=== PATIENT | female | born 1965 | race Caucasian/White ===

== ENCOUNTER 2016-11-19 08:28 | Day surgery (SDC) | payer BC ==
[2016-11-19] MEDS ORDERED: Lactated Ringers 1,000 ML IV SCH (09:00)
[2016-11-19] MEDS ORDERED: ceFAZolin 2 GM in Premix Bag 1 BAG IV ONE (09:03)
--- NOTE | 2016-11-19 09:27 | PCM.PREANE ---
Preanesthetic Assessment - Anesthesia/Transfusion/Family Hx Anesthesia History: Prior Anesthesia Without Reaction Family History of Anesthesia Reaction: No Transfusion History: No Prior Transfusion(s) Intubation History: Unknown - Review of Systems General: No Symptoms Pulmonary: No Symptoms Cardiovascular: No Symptoms Gastrointestinal: No symptoms Neurological: No Symptoms Other: Reports: None - Physical Assessment Height: 1.65 m Weight: 102.058 kg ASA Class: 2 Mental Status: Alert & Oriented x3 Airway Class: Mallampati = 2 Dentition: Reports: Normal Dentition Thyro-Mental Finger Breadths: 3 Mouth Opening Finger Breadths: 3 ROM/Head Extension: Full Lungs: Clear to auscultation, Normal respiratory effort Cardiovascular: Regular Rate, Regular Rhythm - Allergies Allergies/Adverse Reactions: Allergies Allergy/AdvReac Type Severity Reaction Status Date / Time No Known Allergies Allergy Verified 10/14/15 13:06 - Blood Blood Available: No - Anesthesia Plan Pre-Op Medication Ordered: None - Acknowledgements Anesthesia Type Planned: General Anesthesia Pt an Appropriate Candidate for the Planned Anesthesia: Yes Alternatives and Risks of Anesthesia Discussed w Pt/Guardian: Yes Pt/Guardian Understands and Agrees with Anesthesia Plan: Yes PreAnesthesia Questionnaire HEENT History: Reports: Allergic Rhinitis Cardiovascular History: Reports: None Respiratory History: Reports: None Gastrointestinal History: Reports: GERD MOVERS History: Reports: Musculoskeletal History: Reports: Osteoarthritis Neurological History: Reports: Migraines Other Neuro History: insomnia Psychiatric History: Reports: Anxiety, Depression Endocrine/Metabolic History: Reports: Obesity/BMI 30+ Hematologic History: Reports: None Immunologic History: Reports: None Oncologic (Cancer) History: Reports: None Dermatologic History: Reports: None - Past Surgical History Head Surgeries/Procedures: Reports: None GI Surgical History: Reports: Colonoscopy, EGD Female Surgical History: Reports: Section, Other (See Below) Other Female Surgeries/Procedures: c/section x2, breast augmentation - SUBSTANCE USE Smoking Status *Q: Former Smoker - HOME MEDS Home Medications: Home Meds Fluticasone Propionate [Flonase Allergy Relief] 1 spray NASBOTH DAILY 10/14/15 [ History] Sertraline HCl 100 mg PO DAILY 10/14/15 [History] Melatonin 5 mg PO BEDTIME 10/16/15 [History] Verapamil [Calan SR] 1 tab PO BEDTIME 10/16/15 [History] Estrogen,Con/M-Progest Acet [Prempro 0.3 MG-1.5 MG] 1 tab PO DAILY 11/17/16 [ History] Eszopiclone [Lunesta] 3 mg PO BEDTIME 11/17/16 [History] Omeprazole 20 mg PO BID 11/17/16 [History] cloNIDine HCl [Catapres] 0.2 mg PO BEDTIME 11/17/16 [History] - CURRENT (IN HOUSE) MEDS Current Meds: Current Medications Lactated Ringer's (Ringers, Lactated) 1,000 mls @ 100 mls/hr IV ASDIRECTED [facility] Cefazolin Sodium/Dextrose 2 gm (/ Premix) 50 mls @ 100 mls/hr IV ONETIME ONE Stop: 11/19/16 09:32
[2016-11-19] MEDS ORDERED: fentaNYL 100 MCG/2 ML SDV IVPUSH PRN (10:36)
--- NOTE | 2016-11-19 11:02 | PN ---
PREOPERATIVE DIAGNOSIS: Accessory navicular with posterior tibial tendinitis, left foot. PLANNED PROCEDURE: Reconstruction of posterior tibial tendon with excision of accessory tarsal navicular bone, left foot. Consent is signed and in the chart. ANESTHESIA: General. The patient confirms n.p.o. since midnight. HISTORY AND PHYSICAL: Completed by Dr. Tracey. No contraindications to surgery. ALLERGIES: No known allergies. CURRENT MEDICATIONS: Omeprazole 20 mg daily as needed. Clonidine 0.2 mg at bedtime. Verapamil 240 mg daily for migraine prophylaxis. Sertraline 100 mg daily. Lunesta 3 mg at bedtime. Prempro 0.3/1.5 mg one tablet daily. MEDICAL HISTORY: 1. Migraine without aura. 2. Gastroesophageal reflux disease. 3. Osteoarthritis. 4. Chronic left foot pain. 5. History of major depressive disorder/anxiety disorder. 6. Chronic insomnia. PAST SURGICAL HISTORY: twice, breast implants and upper GI endoscopy and colonoscopy. LABORATORY DATA: From 11/10/2016, white blood cell 11.74, red blood cell 5.16, hemoglobin 15.1, hematocrit 44.0, platelets 305, glucose 91, calcium 9.3, BUN 18, creatinine 0.83, sodium 140, potassium 4.2, CO2 of 25.0, Chloride 103. Urinalysis is unremarkable. JOSE VALLES /[id number] MTDD
--- NOTE | 2016-11-19 13:14 | PCM.OPNOTE ---
- General Post-Op/Procedure Note Date of Surgery/Procedure: 11/19/16 Operative Procedure(s): reconstruction of posterior tibial tendon and excision of accessory tarsal navicular bone left foot Findings: consistent with diagnoses Pre Op Diagnosis: accessory navicular bone and posterior tibial tendonitis left foot Post-Op Diagnosis: accessory navicular bone and posterior tibial tendonitis left foot Anesthesia Technique: General LMA Primary Surgeon: Romaine Simeon Pathology: accessory navicular bone and resected medial portion of navicular tuberosity left foot EBL in mLs: 5 Complications: none Condition: Good Free Text/Narrative:: Intake & Output 11/18/16 11/19/16 11/19/16 22:59 06:59 14:59 Intake Total 1600 Balance 1600 injectables: 10 ml 0.5% marcaine plain materials: [employer] Sonic [place] 2.5mm x 10 mm polymer x 2 each mounted with 2-0 Fibrewire suture 3-0 vicryl suture 4-0 prolene suture
--- NOTE | 2016-11-19 13:28 | PCM48HPAN ---
Post Anesthesia Note - EVALUATION WITHIN 48HRS OF ANESTHETIC Vital Signs in Normal Range: Yes Patient Participated in Evaluation: Yes Respiratory Function Stable: Yes Airway Patent: Yes Cardiovascular Function Stable: Yes Hydration Status Stable: Yes Pain Control Satisfactory: Yes Nausea and Vomiting Control Satisfactory: Yes Mental Status Recovered: Yes
[2016-11-19 14:57] VITALS: BP 121/61
--- NOTE | 2016-11-19 23:15 | OR ---
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 PLANNED PROCEDURE: Reconstruction of posterior tibial tendon with excision of the accessory tarsal navicular bone, left foot. CONSENT: Signed and in the chart. ANESTHESIA: General. HEMOSTASIS: Above ankle pneumatic tourniquet, inflated to a pressure of 250 mmHg after an Esmarch bandage exsanguination. JUSTIFICATION FOR THE PROCEDURE: The patient first presented in my office four months ago with complaint of long- standing pain with recent worsening on the left foot over the medial aspect and upon exam I suspected an accessory navicular bone; however, the patient is a 51- year-old, and had no history of being diagnosed with an accessory navicular bone despite the fact that she stated she had complained of pain even as a child on both feet and worse on the left and had not been diagnosed with any extra bone to this day. Upon x-raying the patient, a large obvious accessory navicular bone was identified measuring between two and 2.5 cm in length. I concluded that this was the primary cause of the patient's symptoms and that over the years, her posterior tibial tendon had likely been traumatized significantly due to the obstruction posed by this bone. I explained to the patient that regardless of the bone, the state of the posterior tibial tendon was very questionable given her age and her longstanding history with this problem. Conservative treatments were tried including use of a boot and offloading the area, however, no meaningful result was obtained, certainly no satisfactory relief, and the patient elected for surgical correction. The patient understands and I have discussed with the patient pros and cons of surgery and the limitations that may be achieved and that surgery will consist of excising the accessory navicular bone and resecting the remaining navicular bone to allow for anchoring of the posterior tibial tendon which will need to be reconstructed as well as repaired by suturing the tendon itself, both to itself and into the bone. The patient understands and has agreed to surgery and the patient consent form has been signed and placed in the patient's chart. No guarantees expressed or implied. DESCRIPTION OF THE PROCEDURE: The patient was brought to the operating room, placed on the operating table in the supine position, at which time, an aseptic scrub and drape was performed about the patient's left lower extremity and administration of general anesthesia commenced. Prior to surgery, I x-rayed the patient's foot and planed the incision site with a marking pen. Following this, I exsanguinated the left lower extremity with an Esmarch bandage and the pneumatic tourniquet affixed just above the ankle, was inflated to a pressure of 250 mmHg. A curvilinear 5 cm incision was made directly over the accessory navicular bone and the tuberosity of the navicular bone. Utilizing a 15 blade, incision was carried down through the skin and subcutaneous tissue with all small bleeders bovied as necessary and all neurovascular structures and tendinous structures retracted out of the path of the incision with the exception of the posterior tibial tendon which was identified as being significantly compromised and damaged and thinned. The substance of the tendon was dissected carefully from the accessory navicular bone and the portion of the tuberosity of the navicular bone to which it was attached. Utilizing intraoperative fluoroscopy, I confirmed both through fluoroscopy and visually the location of the accessory navicular bone which was quite obvious upon dissection of the tendon and this bone was carefully dissected and removed from the foot. Measurement was taken and the bone is over 2 cm long. A [employer] saw blade was then utilized to resect the medial eminence of the tuberosity of the navicular bone on the left foot and the site was rasped smooth with a power rasp. The [employer] sonic anchor drill bit was used to prepare to drill holes approximately 6 mm part over the newly fashioned surface of the medial navicular bone and this was followed by insertion of the sonic anchor polymer x2, each one fixed with 2-0 FiberWire, both into the proximal and distal drill holes in the navicular bone. After placement of the anchors, I noted them to be firmly in place and the sutures connected to the anchors were then passed through the superior and inferior portions of the posterior tibial tendon, both at the proximal location and the more distal one, and the tendon was secured to the bone with several hand ties and the excessive suture was then cut away. I should note that prior to use of the sonic anchor drilling piece, the entire area had been copiously flushed with saline solution. I then reinspected the area after tying down the tendon to the bone and just the tendon to be affixed as well as it could be given its compromise state. During this entire time, the foot had been held in a slight inversion for the best possible outcome and the posterior tibial tendon itself was then sutured using 3 - 0 Vicryl suture to further strengthen it. Following this, the layered closure was done with continuous 3-0 Vicryl suture for the subcutaneous tissue and 4-0 Prolene suture for the superficial skin. Postoperative x-rays as well as the preoperative x-rays were taken and the postoperative x-rays did show that the accessory navicular bone was fully resected and removed. 10 mL of 0.5% Marcaine plain was infiltrated about the surgical site. The tourniquet was deflated at a time of 104 minutes. Estimated blood loss was 5 mL, and the site was covered with Betadine-soaked Xeroform gauze followed by fluff gauze, Kerlix roll, and then a stockinette was placed over the entire foot and distal half of the leg followed by multiple layers of cast padding and a fiberglass cast using a combination of 3 and 4 inch fiberglass rules was applied. The patient tolerated the procedure and the anesthesia well with no complications noted and the patient was then transferred from the operating room to the recovery room and after a short stay in recovery room was transferred to her preoperative room prior to discharge. The patient was provided with verbal and written instructions regarding strict nonweightbearing to the left lower extremity until further notice and the patient also has been instructed to make an appointment for two weeks from today to be followed up in my office. The patient and her have my cell phone number in the event that she needs to be seen or talked to sooner than then for any concerns that may arise. The patient also has [place] prescribed for adequate analgesic care. The patient has a scooter and crutches already and she was dispensed a shower bag today to keep the cast clean and dry. JOSE / REENA /[id number] [place]
--- NOTE | 2016-11-23 08:48 | CR ---
EXAMINATION: Left foot HISTORY: Surgery COMPARISON: None TECHNIQUE: 4 fluoroscopic images provided FINDINGS/IMPRESSION: Operative control films demonstrate several projections of the left midfoot wit h overlying projected instrumentation projecting near accessory navicular bone.
== END 2016-11-19 14:00 | disposition home or self-care (01) ==
LOC: MW.SDS 08:28
PROVIDERS: ATTEND Podiatrist Foot & Ankle Surgery
PROC: 0LQP0ZZ Repair Left Lower Leg Tendon, Open Approach (ICD-10-PCS; principal; 2016-11-19)
DX: M76.822 Posterior tibial tendinitis, left leg (principal); Q74.0 Other congenital malformations of upper limb(s), including shoulder girdle; G43.009 Migraine without aura, not intractable, without status migrainosus; K21.9 Gastro-esophageal reflux disease without esophagitis; M19.90 Unspecified osteoarthritis, unspecified site; F32.9 Major depressive disorder, single episode, unspecified; F41.9 Anxiety disorder, unspecified; F51.04 Psychophysiologic insomnia; E66.9 Obesity, unspecified; Z87.891 Personal history of nicotine dependence; Z98.890 Other specified postprocedural states; Z79.899 Other long term (current) drug therapy
CPT/HCPCS: 28238; 76001; J0690; J7120; 01470; 88304; 88311; C1713

== ENCOUNTER 2018-02-14 10:58 | Emergency (ER) | payer BC ==
--- NOTE | 2018-02-14 11:09 | EDM.PDOC ---
ED HPI GENERAL MEDICAL PROBLEM - General Stated Complaint: RASH ON PT'S BODY Time Seen by Provider: 02/14/18 12:24 Source of Information: Reports: Patient History Limitations: Reports: No Limitations - History of Present Illness INITIAL COMMENTS - FREE TEXT/NARRATIVE: HISTORY AND PHYSICAL: 52-year-old female presenting with a rash all over her body History of Present Illness: []Patient has had problems with some vertigo was to see a physician and had Florentin maneuver 4 days ago. Had difficulty with nausea since this procedure. The day after her Florentin maneuver she broke out in a rash all over. She has not changed any soap, solutions, creams. Review of Systems: As per history of present illness and below otherwise all systems reviewed and negative. Past medical history: As per history of present illness and as reviewed below otherwise noncontributory. Surgical history: As per history of present illness and as reviewed below otherwise noncontributory. Social history: No reported history of drug or alcohol abuse. Family history: As per history of present illness and as reviewed below otherwise noncontributory. Physical exam: Alert and oriented female answering questions appropriately in full sentences without any shortness of breath. Vital signs: Reviewed by me. Sinuses are nontender upon palpation. Skin has erythematous areas non-raised, mildly puritic, HEENT: Atraumatic, normocehpalic, pupils reactive, negative for conjunctival pallor or scleral icterus, mucous membranes moist, throat clear, neck supple, nontender, trachea midline. Hepatic membranes without erythema told Lungs: Clear to auscultation, breath sounds equal bilaterally, chest non tender. Heart: S1S2, regular, negative for clicks, rubs, or JVD. Abdomen: Soft, nondistended, nontender. Negative for masses or hepatossplenmegaly. Negative for costovertebral tenderness. Pelvis: Stable nontender. Genitourinary: Deferred. Rectal: Deferred Extremities: Atraumatic, negative for cords or calf pain. Neurovascular unremarkable. Neuro: Awake, alert, oriented. Cranial nerves II through XII unremarkable. Cerebellum unremarkable. Motor and sensory unremarkable throughout. Exam nonfocal. Diagnostics: [] Therapeutics: [] Impression: []#1 Vertigo #2 Nausea, secondary to the vertigo #3 nonspecific rash Plan: []Discharge Medication of #1 meclizine 25 mg up to 2 3 times a day when necessary for vertigo #2 Zofran for nausea ODT # 12 # medrol dose pack Follow up for re-evaluation with your PCP in 3 days Definitive disposition and diagnosis as appropriate pending reevaluation and review of above. Onset: Gradual Duration: Week(s): Location: Reports: Head, Generalized Quality: Reports: Ache Severity: Moderate Improves with: Reports: None Worsens with: Reports: None - Related Data Allergies Allergy/AdvReac Type Severity Reaction Status Date / Time No Known Allergies Allergy Verified 02/14/18 11:21 Home Meds: Home Meds Verapamil [Calan SR] 1 tab PO BEDTIME 10/16/15 [History] Eszopiclone [Lunesta] 3 mg PO BEDTIME 11/17/16 [History] Omeprazole 20 mg PO BID 11/17/16 [History] cloNIDine HCl [Catapres] 0.2 mg PO BEDTIME 11/17/16 [History] Meclizine [Antivert] 25 mg PO Q6H PRN #12 tab 02/14/18 [Rx] Ondansetron [Zofran ODT] 4 mg PO Q6H PRN #12 tab.dis 02/14/18 [Rx] methylPREDNISolone [Medrol] 4 mg PO ASDIRECTED #1 dosepk 02/14/18 [Rx] Past Medical History HEENT History: Reports: Allergic Rhinitis Cardiovascular History: Reports: None Respiratory History: Reports: None Gastrointestinal History: Reports: GERD 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: Musculoskeletal History: Reports: Osteoarthritis Neurological History: Reports: Migraines Other Neuro History: insomnia Psychiatric History: Reports: Anxiety, Depression Endocrine/Metabolic History: Reports: Obesity/BMI 30+ Hematologic History: Reports: None Immunologic History: Reports: None Oncologic (Cancer) History: Reports: None Dermatologic History: Reports: None - Past Surgical History Head Surgeries/Procedures: Reports: None GI Surgical History: Reports: Colonoscopy, EGD Female Surgical History: Reports: Section, Other (See Below) Other Female Surgeries/Procedures: c/section x2, breast augmentation ED ROS GENERAL - Review of Systems Review Of Systems: ROS reveals no pertinent complaints other than HPI. ED EXAM, SKIN/RASH Exam: See Below (see dicctation) Course - Vital Signs Last Recorded V/S: Last Vital Signs Temp 36.3 C 02/14/18 11:17 Pulse 65 02/14/18 11:17 Resp 18 02/14/18 11:17 BP 126/58 L 02/14/18 11:17 Pulse Ox 93 L 02/14/18 11:17 Departure - Departure Time of Disposition: 12:30 Disposition: Home, Self-Care 01 Condition: Good Clinical Impression: Vertigo, Rash and nonspecific skin eruption, Nausea - Discharge Information *PRESCRIPTION DRUG MONITORING PROGRAM REVIEWED*: Not Applicable *COPY OF PRESCRIPTION DRUG MONITORING REPORT IN PATIENT PAULY: Not Applicable Prescriptions: Meclizine [Antivert] 25 mg PO Q6H PRN #12 tab PRN Reason: Dizziness methylPREDNISolone [Medrol] 4 mg PO ASDIRECTED #1 dosepk Ondansetron [Zofran ODT] 4 mg PO Q6H PRN #12 tab.dis PRN Reason: Nausea Instructions: Nausea, Adult, Vertigo, [id number], How to Perform the Florentin Maneuver Referrals: Linda Dean NP [Primary Care Provider] - Additional Instructions: The following information is given to patients seen in the emergency department who are being discharged to home. This information is to outline your options for follow-up care. We provide all patients seen in our emergency department with a follow-up referral. The need for follow-up, as well as the timing and circumstances, are variable depending upon the specifics of your emergency department visit. If you don't have a primary care physician on staff, we will provide you with a referral. We always advise you to contact your personal physician following an emergency department visit to inform them of the circumstance of the visit and for follow-up with them and/or the need for any referrals to a consulting specialist. The emergency department will also refer you to a specialist when appropriate. This referral assures that you have the opportunity for followup care with a specialist. All of these measure are taken in an effort to provide you with optimal care, which includes your followup. Under all circumstances we always encourage you to contact your private physician who remains a resource for coordinating your care. When calling for followup care, please make the office aware that this follow-up is from your recent emergency room visit. If for any reason you are refused follow-up, please contact the [facility] emergency department at and asked to speak to the emergency department charge nurse. Discharge Medication of #1 meclizine 25 mg up to 2 3 times a day when necessary for vertigo #2 Zofran for nausea ODT # 12 # medrol dose pack Follow up for re-evaluation with your PCP in 3 days
[2018-02-14 13:00] VITALS: BP 105/73
== END 2018-02-14 12:59 | disposition home or self-care (01) ==
LOC: MW.ED 10:58
DX: R42 Dizziness and giddiness (principal); R21 Rash and other nonspecific skin eruption; R11.0 Nausea; Z79.899 Other long term (current) drug therapy; E66.9 Obesity, unspecified
CPT/HCPCS: 99282

== ENCOUNTER 2020-05-09 13:15 | Emergency (ER) | payer BC ==
[2020-05-09] MEDS ORDERED: Sodium Chloride 0.9% 1,000 ML IV ONE (13:41)
--- NOTE | 2020-05-09 13:41 | EDM.PDOC ---
ED HPI GENERAL MEDICAL PROBLEM - General Chief Complaint: General Stated Complaint: COVID POSITIVE,DEHYDRATION Time Seen by Provider: 05/09/20 13:26 Source of Information: Reports: Patient History Limitations: Reports: No Limitations - History of Present Illness INITIAL COMMENTS - FREE TEXT/NARRATIVE: Patient is a 54-year-old female who comes in today for fatigue and diarrhea. Patient that she tested positive for Covid on April 22 and since then has had decreased appetite but no vomiting. Patient denies any shortness of breath fever chills. Patient she has not been able to eat or drink is due to no appetite has been feeling weak and tired. Patient denies any abdominal pain. - Related Data Allergies Allergy/AdvReac Type Severity Reaction Status Date / Time No Known Allergies Allergy Verified 05/09/20 13:29 Home Meds: Home Meds Verapamil [Calan SR] 1 tab PO BEDTIME 10/16/15 [History] Eszopiclone [Lunesta] 3 mg PO BEDTIME 11/17/16 [History] Omeprazole 20 mg PO DAILY 11/17/16 [History] cloNIDine HCL [Catapres] 0.2 mg PO BEDTIME 11/17/16 [History] Sertraline [Zoloft] PO DAILY 05/09/20 [History] Past Medical History HEENT History: Reports: Allergic Rhinitis Cardiovascular History: Reports: None Respiratory History: Reports: None Gastrointestinal History: Reports: GERD [employer] History: Reports: Musculoskeletal History: Reports: Osteoarthritis Neurological History: Reports: Migraines Other Neuro History: insomnia Psychiatric History: Reports: Anxiety, Depression Endocrine/Metabolic History: Reports: Obesity/BMI 30+ Hematologic History: Reports: None Immunologic History: Reports: None Oncologic (Cancer) History: Reports: None Dermatologic History: Reports: None - Infectious Disease History Infectious Disease History: Reports: Chicken Pox, Measles, Mumps, Shingles - Past Surgical History Head Surgeries/Procedures: Reports: None GI Surgical History: Reports: Colonoscopy, EGD Female Surgical History: Reports: Section, Other (See Below) Other Female Surgeries/Procedures: c/section x2, breast augmentation Musculoskeletal Surgical History: Reports: Other (See Below) Other Musculoskeletal Surgeries/Procedures:: Foot Surgery Social & Family History - Family History Family Medical History: No Pertinent Family History - Tobacco Use Tobacco Use Status *Q: Current Every Day Tobacco User Years of Tobacco use: 2 Packs/Tins Daily: 0 - Recreational Drug Use Recreational Drug Use: No ED ROS GENERAL - Review of Systems Review Of Systems: Comprehensive ROS is negative, except as noted in HPI. Constitutional: Reports: No Symptoms HEENT: Reports: No Symptoms Respiratory: Reports: No Symptoms Cardiovascular: Reports: No Symptoms Endocrine: Reports: No Symptoms GI/Abdominal: Reports: Anorexia, Diarrhea : Reports: No Symptoms Musculoskeletal: Reports: No Symptoms Skin: Reports: No Symptoms Neurological: Reports: No Symptoms Psychiatric: Reports: No Symptoms Hematologic/Lymphatic: Reports: No Symptoms Immunologic: Reports: No Symptoms ED EXAM, GENERAL - Physical Exam Exam: See Below Exam Limited By: No Limitations General Appearance: Alert, No Apparent Distress Eye Exam: Bilateral Eye: EOMI, PERRL Respiratory/Chest: No Respiratory Distress, Lungs Clear Cardiovascular: Regular Rate, Rhythm GI/Abdominal: Normal Bowel Sounds Extremities: Normal Range of Motion Neurological: Alert, Oriented, CN II-XII Intact Course - Vital Signs Last Recorded V/S: Last Vital Signs Temp 97.5 F 05/09/20 13:25 Pulse 82 05/09/20 13:25 Resp 20 05/09/20 13:25 BP 139/74 05/09/20 13:25 Pulse Ox 95 05/09/20 13:25 - Orders/Labs/Meds Labs: Laboratory Tests 05/09/20 05/09/20 Range/Units 13:50 13:50 WBC 10.23 (4.0-11.0) K/uL RBC 4.95 (4.30-5.90) M/uL Hgb 14.0 (12.0-16.0) g/dL Hct 41.6 (36.0-46.0) % MCV 84.0 (80.0-98.0) fL MCH 28.3 (27.0-32.0) pg MCHC 33.7 (31.0-37.0) g/dL RDW Std Deviation 43.4 (28.0-62.0) fl RDW Coeff of Doc 14 (11.0-15.0) % Plt Count 461 H (150-400) K/uL MPV 9.40 (7.40-12.00) fL Neut % (Auto) 63.3 (48.0-80.0) % Lymph % (Auto) 25.1 (16.0-40.0) % [place] % (Auto) 11.1 (0.0-15.0) % Eos % (Auto) 0.4 (0.0-7.0) % Baso % (Auto) 0.1 (0.0-1.5) % Neut # (Auto) 6.5 H (1.4-5.7) K/uL Lymph # (Auto) 2.6 H (0.6-2.4) K/uL [place] # (Auto) 1.1 H (0.0-0.8) K/uL Eos # (Auto) 0.0 (0.0-0.7) K/uL Baso # (Auto) 0.0 (0.0-0.1) K/uL Nucleated RBC % 0.0 /100WBC Nucleated RBCs # 0 K/uL Sodium 139 (136-145) mmol/L Potassium 3.3 L (3.5-5.1) mmol/L Chloride 104 (98-107) mmol/L Carbon Dioxide 22.0 (21.0-32.0) mmol/L BUN 5 L (7.0-18.0) mg/dL Creatinine 0.9 (0.6-1.0) mg/dL Est Cr Clr Drug Dosing 63.55 mL/min Estimated GFR (MDRD) > 60.0 ml/min Glucose 110 H (74-106) mg/dL Calcium 9.2 (8.5-10.1) mg/dL Magnesium 2.2 (1.8-2.4) mg/dL Total Bilirubin 0.4 (0.2-1.0) mg/dL AST 24 (15-37) IU/L ALT 41 (14-63) IU/L Alkaline Phosphatase 101 (46-116) U/L Total Protein 7.7 (6.4-8.2) g/dL Albumin 3.6 (3.4-5.0) g/dL Globulin 4.1 H (2.6-4.0) g/dL Albumin/Globulin Ratio 0.9 (0.9-1.6) Lipase 159 (73-393) U/L Meds: Medications Discontinued Medications Generic Name Dose Route Start Last Admin Trade Name Freq PRN Reason Stop Dose Admin Sodium Chloride 1,000 mls @ 999 mls/hr 05/09/20 13:41 05/09/20 14:00 Normal Saline IV 05/09/20 14:41 999 mls/hr .BOLUS ONE Administration - Re-Assessments/Exams Free Text/Narrative Re-Assessment/Exam: 05/09/20 15:15 Patient labs reviewed given 1 L IV fluids. Patient remains been able to tolerate p.o. this has a decreased intake. Patient drank half a Gatorade while in the ED on top of her IV fluids. Patient will be discharged home to follow-up with primary care physician. Departure - Departure Time of Disposition: 15:15 Disposition: Home, Self-Care 01 Condition: Good Clinical Impression: Diarrhea - Discharge Information *PRESCRIPTION DRUG MONITORING PROGRAM REVIEWED*: Not Applicable *COPY OF PRESCRIPTION DRUG MONITORING REPORT IN PATIENT PAULY: Not Applicable Instructions: Diarrhea, Adult, [id number] Referrals: Evelyn Jones DO [Primary Care Provider] - Forms: ED Department Discharge Additional Instructions: The following information is given to patients seen in the emergency department who are being discharged to home. This information is to outline your options for follow-up care. We provide all patients seen in our emergency department with a follow-up referral. The need for follow-up, as well as the timing and circumstances, are variable depending upon the specifics of your emergency department visit. If you don't have a primary care physician on staff, we will provide you with a referral. We always advise you to contact your personal physician following an emergency department visit to inform them of the circumstance of the visit and for follow-up with them and/or the need for any referrals to a consulting specialist. The emergency department will also refer you to a specialist when appropriate. This referral assures that you have the opportunity for follow-up care with a specialist. All of these measure are taken in an effort to provide you with optimal care, which includes your follow-up. Under all circumstances we always encourage you to contact your private froy [email or web address] who remains a resource for coordinating your care. When calling for follow-up care, please make the office aware that this follow-up is from your recent emergency room visit. If for any reason you are refused follow-up, please contact the [facility] Emergency Department at and asked to speak to the emergency department charge nurse. Please follow up with your primary care physician. If you do not have a primary care physician, see below: [facility] [address] [place] [address] [facility] [address] [place] [address] Please continue to try to stay hydrated with water Gatorade when you look with you please. Please try to tolerate crackers or bananas as needed. Please follow-up to primary care physician. If you cannot tolerate anything by mouth please return to the ED. Sepsis Event Note (ED) - Evaluation Sepsis Screening Result: No Definite Risk - Focused Exam Vital Signs: Vital Signs Temp Pulse Resp BP Pulse Ox 05/09/20 13:25 97.5 F 82 20 139/74 95 - Assessment/Plan Plan: Patient is a 54-year-old female presents today for weakness and diarrhea. Patient discussed possible Covid over 2 weeks ago and had decreased p.o. intake. Will check labs in the IV fluids and reassess.
[2020-05-09 14:44] LABS: BLOOD UREA NITROGEN,BUN 5 mg/dL (7.0-18.0); CHLORIDE,CL 104 mmol/L (98-107); GLUCOSE RANDOM 110 mg/dL (74-106); LIPASE 159 U/L (73-393); POTASSIUM,K 3.3 mmol/L (3.5-5.1); SODIUM,NA 139 mmol/L (136-145)
[2020-05-09 19:34] VITALS: BP 154/72; PULSE 72
== END 2020-05-09 15:35 | disposition home or self-care (01) ==
LOC: MW.ED 13:15
DX: R19.7 Diarrhea, unspecified (principal); F41.9 Anxiety disorder, unspecified; F32.9 Major depressive disorder, single episode, unspecified; K21.9 Gastro-esophageal reflux disease without esophagitis; E66.9 Obesity, unspecified; Z68.36 Body mass index [BMI] 36.0-36.9, adult; F17.210 Nicotine dependence, cigarettes, uncomplicated; Z79.899 Other long term (current) drug therapy
CPT/HCPCS: 36415; 80053; 83690; 83735; 85025; 99284; J7030; 99282